=== PATIENT | male | born 1965 | race Caucasian/White ===

== ENCOUNTER → 2017-11-03 | Outpatient (CLI) | payer OTHER ==
[~2017-11-03] MED LIST: ASPIRIN 81M81 MG/TA2 PO; COLACE 100100 MG/CAP PO; FLOMAX 0.40.4 MG/CAP PO; INDOCIN SR 75MG75 MG PO; INDOMETHACIN PO; LYRICA 150MG C150 MG PO; MORPHINE PO; MS CONTIN 330 MG/TAB PO; NEURONTIN300 MG/CAP PO; PEPCID 20MG TAB20 MG PO; PERCOCET 325 MG1 TA2 PO; PERIDEX (CHLOR480 ML MM; PRAVACHOL10 MG PO; REMERON 15M15 MG/TA1 PO; RISPERDAL 0.20.25 MG PO; WELLBUTRIN SR200 MG PO; ZESTRIL 10MG10 MG PO
== END ==
LOC: MHCPAIN 10:06
DX: G89.29 Other chronic pain (principal); M47.817 Spondylosis without myelopathy or radiculopathy, lumbosacral region; M54.16 Radiculopathy, lumbar region; M53.3 Sacrococcygeal disorders, not elsewhere classified
CPT/HCPCS: G0463

== ENCOUNTER 2018-12-17 14:00 | Outpatient (RCR) | payer OTHER | END 2018-12-28 09:14 | disposition home or self-care (01) | LOC: WSPT 14:00 | DX: G89.4 Chronic pain syndrome (principal); M54.5 Low back pain ==

== ENCOUNTER 2020-11-20 15:03 | Day surgery (SDC) | payer OTHER ==
[2020-11-20] VITALS (11 sets, daily range): BP systolic 101–127; BP diastolic 60–94; PULSE 58–84; TEMP 97.4–98
[~2020-11-20] VITALS: Ht 180.3 cm; Wt 116.9 kg
[2020-11-20] MEDS ORDERED: WELLBUTRIN XL300 M1 PO (15:36)
[2020-11-20] MEDS ORDERED: AMOXICILLIN 50500 MG PO (15:40)
[2020-11-20] MEDS ORDERED: LYRICA300 MG PO (15:41)
[2020-11-20] MEDS ORDERED: LEXAPRO20 MG PO (15:42)
--- NOTE | 2020-11-20 16:40 | NUR ---
PATIENT TRANSPORTED PER CART FROM PACU TO BAY 8 ACCOMPANIED BY SOFTWARE ENGINEER BACKEND. MONITORS APPLIED. VSS ON ROOM AIR. PATIENT ALERT AND TALKING WITH STAFF. DENIES DISCOMFORT. 1645 PATIENT GIVEN MUFFIN AND ORANGE JUICE.
--- NOTE | 2020-11-20 16:45 | NUR ---
VSS ON ROOM AIR. PATIENT TOLERATES JUICE AND MUFFIN WITHOUT PROBLEMS. NO BLEEDING NOTED FROM OP SITE.
--- NOTE | 2020-11-20 17:04 | NUR ---
VVS ON ROOM AIR. PICC LINE ACCESSED DC'D. PATIENT TALKING WITH STAFF. PATIENT CHANGES INTO STREET CLOTHES.
--- NOTE | 2020-11-20 17:15 | NUR ---
PATIENT USES RESTROOM. DISCHARGE INSTRUCTS GIVEN VERBAL AND DISCHARGE PACKET. QUESTIONS ANSWERED AND PATIENT VOICED UNDERSTANDING. PATIENT DISCHARGED PER WHEEL CHAIR [facility]
[2020-11-20] MEDS ORDERED: NORCO 325 MG-51 TAB PO (17:27)
[2020-11-20] MEDS ORDERED: PYRIDIUM 100MG100 MG PO (17:28)
--- NOTE | 2020-11-20 18:00 | NUR ---
Pt transferred from PACU on cart. Alert and oriented, denies pain at this time, but does request urinal to urinate. 50 cc blood tinged urine output, no pain with urination reported. IV to left AC with LR at wide open gtt. Sophia bedside. VSS
--- NOTE | 2020-11-20 19:25 | NUR ---
INT discontinued intact. PT ate full meal and drank 200 cc tea and water. Urinated blood tinged urine 150 cc. Discharge instructions given.
--- NOTE | 2020-11-20 19:38 | NUR ---
Transferred to private car by ricardo
== END 2020-11-20 19:39 | disposition home or self-care (01) ==
LOC: SDCO 15:03
DX: N20.1 Calculus of ureter (principal); I10 Essential (primary) hypertension; E78.00 Pure hypercholesterolemia, unspecified; Z90.89 Acquired absence of other organs; Z79.82 Long term (current) use of aspirin; Z79.899 Other long term (current) drug therapy; Z79.891 Long term (current) use of opiate analgesic
CPT/HCPCS: C1769; C2617; J0690; J1100; J2405; J2704; J3010; Q9967